=== PATIENT | female | born 2000 | race Caucasian/White ===

== ENCOUNTER 2021-12-12 17:50 | Outpatient (CLI) | payer MEDICAID, SELFPAY ==
[2021-12-12 20:27] LABS: Cholesterol* 237 mg/dL (90-199)
[2021-12-12 20:28] LABS: HDL Cholesterol* 88 mg/dL (>=50); LDL Cholesterol Calculated 132 mg/dL (<100); Triglycerides* 84 mg/dL (40-149)
[2021-12-12 21:37] LABS: Chlamydia DNA Amplified* NOT DETECTED (No Detected); GC DNA Amplified* NOT DETECTED (No Detected)
== END 2021-12-12 17:51 | disposition home or self-care (01) ==
PROVIDERS: Visit Provider Registered Nurse
DX: Z01.419 Encounter for gynecological examination (general) (routine) without abnormal findings (principal); Z11.3 Encounter for screening for infections with a predominantly sexual mode of transmission; Z13.6 Encounter for screening for cardiovascular disorders
CPT/HCPCS: 80061; 87491; 87591